=== PATIENT | male | born 1990 | race Caucasian/White ===

== ENCOUNTER 2025-04-09 00:14 | Inpatient (IN) | payer OTHER ==
[2025-04-09] VITALS (8 sets, daily range): BP systolic 128–138; BP diastolic 75–83
[~2025-04-09] VITALS: Ht 167.6 cm; Wt 96.9 kg
[2025-04-09] MEDS ORDERED: HYDROXYZINE HCL50 MG PO (00:29)
[2025-04-09] MEDS ORDERED: KETOROLAC TROMETHAMINE 30 MG/ML VIAL IV ONE (02:00)
[2025-04-09 02:09] LABS: BASOPHILS 0.4 % (0.2-1.2); EOSINOPHILS 0.5 % (0.8-7.0); LYMPHOCYTES 13.0 % (21.8-53.1); MCH 29.6 PG (25.7-32.2); MCHC 35.5 g/dL (32.3-36.5); MCV 83.4 fL (79.0-92.2); MONOCYTES 9.5 % (5.3-12.2); NEUTROPHILS 76.4 % (34.0-67.9); RBC 5.37 M/uL (4.63-6.08)
[2025-04-09] MEDS ORDERED: CYCLOBENZAPRINE HCL 10 MG TAB PO ONE (02:15)
[2025-04-09] MEDS ORDERED: HYDROmorphone HCL 1 MG/ML SYR IV ONE (02:15)
[2025-04-09 02:40] LABS: ALT (SGPT) 32.0 U/L (14-59); AST (SGOT) 138.0 U/L (15-37); GLOMERULAR FILTRATION RATE,EST 117.0 mL/min (>60); PROTEIN, TOTAL 7.8 g/dL (6.4-8.2); UREA NITROGEN 14.0 mg/dL (7-18)
[2025-04-09] MEDS ORDERED: HYDROmorphone HCL 1 MG/ML SYR IV PRN ×3 (03:45→15:45)
[2025-04-09] MEDS ORDERED: LACTATED RINGER'S 1,000 ML IV ONE ×2 (03:45→04:00)
[2025-04-09] MEDS ORDERED: ACETAMINOPHEN 325 MG TAB PO PRN ×2 (06:15→10:15)
[2025-04-09] MEDS ORDERED: LACTATED RINGER'S 1,000 ML IV SCH ×2 (06:15→10:15)
[2025-04-09 06:37] LABS: GLOMERULAR FILTRATION RATE,EST 125.0 mL/min (>60); UREA NITROGEN 10.0 mg/dL (7-18)
--- NOTE | 2025-04-09 07:50 | NUR ---
PT IN FROM ED VIA WHEELCHAIR. ALERT AND ORIENTED, ON RA C/O 10 PAIN. VSS TAKEN AND RECORDED. IV FLUID STARTED, PAIN MEDICATION GIVEN ORDERED. ADMISSION DONE.
--- NOTE | 2025-04-09 08:48 | NUR ---
PATIENT RESTING IN BED. SAFE BREAKFAST TRAY PROVIDED. TELE PLACED ON PATIENT. NO FURTHER NEEDS AT THIS TIME. GAURDS X2 AT BEDSIDE. CALL LIGHT AND PERSONAL BELONGINGS ARE WITHIN REACH.
--- NOTE | 2025-04-09 09:24 | NUR ---
PATIENT DOES NOT WEAR OXYGEN OR A CPAP.
--- NOTE | 2025-04-09 09:37 | NUR ---
PT LAYING IN BED, RESPIRATIONS EVEN AND UNLABORED. IV FLUID INFUSING WELL. C/O 02/13 PAIN AFTER USING THE BATHROOM. DILAUDID IV GIVEN ORDERED. DENIES FURTHER NEEDS. CALL LIGHT IN REACH.
--- NOTE | 2025-04-09 09:43 | NUR ---
PT STATED BEING GIVEN A MUSCLE RELAXANT AT ED THAT SEEMED TO HELP WITH HIS PAIN, ASKED IF IT IS AN OPTION FOR HIM. RELAYED TO DR. JUAN, WILL REVIEW. NO FURTHER ORDERS AT THIS TIME.
[2025-04-09] MEDS ORDERED: OXYCODONE HCL 5 MG TAB PO PRN (10:00)
[2025-04-09] MEDS ORDERED: CYCLOBENZAPRINE HCL 10 MG TAB PO PRN (10:00)
--- NOTE | 2025-04-09 10:29 | NUR ---
PT LAYING IN BED, RESPIRATIONS EVEN AND UNLABORED. IV FLUID INFUSING WELL. SCDS APPLIED ORDERED, EDUCATED THE PT ON REASONS AND BENEFITS OF WEARING THEM. PT VERBALIZED THAT HIS PAIN IS BETTER AFTER A DOSE OF DILAUDID. OFFERED ICE OR HEAT PACK, PT REFUSED FOR NOW IT IS PAINFUL FOR HIM TO MOVE. DENIES FURTHER NEEDS. CALL LIGHT IN REACH.
--- NOTE | 2025-04-09 10:33 | NUR ---
UR CLINICAL REVIEW: [facility] CRITERIA FOR RHABDOMYOLYSIS CK 9287, TRENDING CK, IV FLUIDS, NEEDED OBSERVATION PERIOD GREATER THAN 4 HOURS [facility] OBS 04/09/2025 @ 0610 ORDER MATCHES REG CLINICALS SENT TO [facility] VIA RIGHTFAX, NO AUTH REQUIRED. PLAN TO RETURN TO [facility] WHEN MEDICALLY READY. 04/10/2025
[2025-04-09] MEDS ORDERED: ABILIFY15 MG PO (10:52)
[2025-04-09] MEDS ORDERED: BUSPIRONE HCL10 MG PO (10:53)
[2025-04-09] MEDS ORDERED: DULOXETINE HCL30 MG PO (10:53)
[2025-04-09] MEDS ORDERED: TRAZODONE HCL100 MG PO (10:59)
--- NOTE | 2025-04-09 11:00 | NUR ---
MED REC COMPLETE
--- NOTE | 2025-04-09 11:30 | NUR ---
PT LAYING IN BED, RESPIRATIONS EVEN AND UNLABORED. NO C/O OF PAIN AT THE MOMENT. IV FLUID INFUSING WELL. DENIES NEEDS AT THIS TIME. CALL LIGHT IN REACH.
[2025-04-09] MEDS ORDERED: PHARMACY RENAL DOSE ADJUSTMENT 1 DOSE MISC PO SCH (12:00)
--- NOTE | 2025-04-09 12:29 | NUR ---
PT LAYING IN BED. RESPIRATIONS EVEN AND UNLABORED. C/O 12/14 PAIN, PRN MEDICATIONS GIVEN ORDERED. INTAKE AND OUTPUT RECORDED. DENIES FURTHER NEEDS
--- NOTE | 2025-04-09 13:18 | NUR ---
PT LAYING IN BED, RESPIRATIONS EVEN AND UNLABORED. IV FLUID INFUSING WELL. NO APPARENT NEEDS NOTED AT THIS TIME. CALL LIGHT WITHIN REACH.
--- NOTE | 2025-04-09 15:18 | NUR ---
PT LAYING IN BED, ASLEEP. RESPIRATIONS EVEN AND UNLABORED. IV FLUID INFUSING WELL. NO APPARENT NEEDS NOTED AT THIS TIME. CALL LIGHT IN REACH.
[2025-04-09] MEDS ORDERED: LACTATED RINGER'S 2,000 ML IV SCH (15:45)
--- NOTE | 2025-04-09 15:53 | NUR ---
PATIENT MEDICATED PER EMAR. HEAT BACK PROVIDED TO PATIENT LOWER BACK. BOLUS IV FLUIDS INFUSING PER ORDER. CPOX PLACED ON PATIENT DUE TO GETTING PAIN MEDICATIONS. PATIENT IS WITHOUT FURTHER NEEDS AT THIS TIME. CALL LIGHT AND PERSONAL BELONGINGS ARE WITHIN REACH.
--- NOTE | 2025-04-09 16:10 | NUR ---
PT LAYING IN BED, RESPIRATIONS EVEN AND UNLABORED. CURRENTLY RUNNING SECOND BAG OF 2L BOLUS. REPORTED HIS PAIN IS BETTER AFTER GETTING A DOSE OF PAIN MEDICATION. DENIES NEEDS AT THE MOMENT. CALL LIGHT IN REACH.
--- NOTE | 2025-04-09 17:42 | NUR ---
PT LAYING IN BED, C/O 02/13 PAIN, TYLENOL GIVEN ORDERED. IV INFUSING WELL. VITAL SIGNS TAKEN AND RECORDED. INTAKE AND OUTPUT RECORDED. DENIES FURTHER NEEDS. CALL LIGHT IN REACH.
--- NOTE | 2025-04-09 18:06 | NUR ---
PT LAYING IN BED. BOLUS DONE, CONTINUOUS IV INFUSION RESTARTED.
--- NOTE | 2025-04-09 18:35 | NUR ---
PT LAYING IN BED. C/O 02/13 PAIN PRN MEDICATION GIVEN. IV FLUID INFUSING WELL. DENIES FURTHER NEEDS. CALL LIGHT IN REACH.
--- NOTE | 2025-04-09 19:35 | NUR ---
REPORT RECEIVED FROM ALLAN ARITA. PT ASLEEP, GUARDS AT BEDSIDE. URINAL EMPTIED. CALL LIGHT WITHIN REACH.
[2025-04-09] MEDS ORDERED: SODIUM CHLORIDE 0.9% 1,000 ML IV SCH (20:45)
--- NOTE | 2025-04-09 20:46 | NUR ---
PAPER COATER OBTAINED VITALS AND I&O. PT REQUESTING PAIN MEDS. PT STATES NO OTHER NEEDS AND CALL LIGHT WITHIN REACH, GUARDS IN ROOM. RN NOTIFIED ABOUT PAIN MED.
--- NOTE | 2025-04-09 21:30 | NUR ---
PT RETING IN BED, GUARDS AT BEDSIDE. VSS. PT ORIENTED X 4, MILD ANXIETY. PT ASSISTED TO BR W/ 1 ASSIST FOR LTM. PT REPORTS 10/10 BACK PAIN AFTER AMBULATION, PRN IV DILAUDID ADMINISTERED PER EMAR. LSC. HRR. BTA. LBM YESTERDAY. VOIDS WNL, URINAL AT BEDSIDE. LAC SL WNL. RFA IV INFUSING NS BOLUS. SCD'S IN PLACE. CALL LIGHT WITHIN REACH.
--- NOTE | 2025-04-09 21:50 | NUR ---
MARTINEZ CATH PLACED PER MD VERBAL ORDER.
[2025-04-09] MEDS ORDERED: LIDOCAINE 2% VISCOUS 6 ML SYR TOP ONE (22:00)
--- NOTE | 2025-04-09 22:28 | NUR ---
PRN FLEXERIL ADMINISTERED PER C/O CONTINUED BACK PAIN, 11/13. PT RESTING IN BED. MARTINEZ CATH UO CLEAR YELLOW.
[2025-04-10] VITALS (12 sets, daily range): BP systolic 131–148; BP diastolic 65–79
--- NOTE | 2025-04-10 00:38 | NUR ---
4TH BOLUS OF NS STARTED. PRN IV DILAUDID ADMINISTERED FOR C/O 10/10 BACK PAIN. PT ASSISTED TO REPOSITION.
[2025-04-10 00:51] LABS: GLOMERULAR FILTRATION RATE,EST 119.0 mL/min (>60); UREA NITROGEN 7.0 mg/dL (7-18)
--- NOTE | 2025-04-10 01:25 | NUR ---
DR. VICENTE NOTIFIED OF INCREASING CK (13,[phone]). RECEIVED NEW ORDERS TO CHANGE IVF TO LR @ 500MLS/HR TO MAINTAIN UO >=300MLS/HR.
[2025-04-10] MEDS ORDERED: LACTATED RINGER'S 1,000 ML IV SCH (01:30)
--- NOTE | 2025-04-10 01:43 | NUR ---
LR INITIATED AT 500MLS/HR. AT BEDSIDE TO ASSESS PATIENT. UO PALE YELLOW, 1250cc OUT.
--- NOTE | 2025-04-10 02:57 | NUR ---
PT RESTING QUIETLY. URINE SAMPLE OBTAINED FROM MARTINEZ AND SENT TO LAB.
[2025-04-10 03:56] LABS: BLOOD/HGB, URINE LARGE (Negative); KETONE, URINE NEGATIVE (Negative); LEUK ESTERASE, URINE NEGATIVE (negative); NITRITE, URINE NEGATIVE (negative)
[2025-04-10 04:03] LABS: BACTERIA, URINE RARE /hpf (negative); CASTS, URINE NONE SEEN \\lpf; CRYSTALS, URINE NONE SEEN (0-1+); EPITHELIAL CELLS, URINE SQUAMOUS 1+ /lpf (0-1+); REFLEX CULTURE, URINE No (No)
[2025-04-10 04:10] LABS: AMPHETAMINES, URINE NEGATIVE (NEGATIVE); BARBITURATES, URINE NEGATIVE (NEGATIVE); BENZODIAZEPINE, URINE NEGATIVE (NEGATIVE); CANNABINOID, URINE NEGATIVE (NEGATIVE); COCAINE, URINE NEGATIVE (NEGATIVE); ECSTASY, URINE NEGATIVE (NEGATIVE); FENTANYL, URINE NEGATIVE (NEGATIVE); METHADONE, URINE NEGATIVE (NEGATIVE); OPIATES, URINE NEGATIVE (NEGATIVE); OXYCODONE, URINE POSITIVE (NEGATIVE); PHENCYCLIDINE, URINE NEGATIVE (NEGATIVE)
--- NOTE | 2025-04-10 04:35 | NUR ---
PT REQUESTED PRN IV DILAUDID FOR CONTINUED 10/10 BACK PAIN-ADMINISTERED. GUARDS REMAIN AT BEDSIDE.
--- NOTE | 2025-04-10 06:02 | NUR ---
PUMP ALARMING, NEW BAG IV FLUIDS INFUSING DIRECTED. IV SITE WNL, NO ADDITIONAL NEEDS OR CONCERNS VERBALIZED. GUARDS X2 REMAINS IN ROOM.
[2025-04-10 06:06] LABS: BASOPHILS 0.3 % (0.2-1.2); EOSINOPHILS 0.3 % (0.8-7.0); LYMPHOCYTES 11.1 % (21.8-53.1); MCH 29.3 PG (25.7-32.2); MCHC 35.3 g/dL (32.3-36.5); MCV 82.9 fL (79.0-92.2); MONOCYTES 8.6 % (5.3-12.2); NEUTROPHILS 79.5 % (34.0-67.9); RBC 5.43 M/uL (4.63-6.08)
[2025-04-10 06:35] LABS: ALT (SGPT) 53.0 U/L (14-59); AST (SGOT) 315.0 U/L (15-37); GLOMERULAR FILTRATION RATE,EST 124.0 mL/min (>60); PHOSPHORUS, INORGANIC 3.0 mg/dL (2.5-4.9); PROTEIN, TOTAL 6.6 g/dL (6.4-8.2); UREA NITROGEN 6.0 mg/dL (7-18)
--- NOTE | 2025-04-10 07:05 | NUR ---
REPORT RECIEVED FROM ALLAN MANUEL. PATIENT CALLED FOR HELP WITH HIS GOWN. IN ROOM TO DISCONNECT IV. IV FLUSHED WITH 10ML OF NS, DRESSING IS INTACT. IV REATTACHED. AND INFUSING PER ORDER. PATIENT REPOSITIONED TO COMFORT. PATIENT REPORTING DISCOMFORT, BUT DENIES A HEAT PACK DUE TO IT BEING "TOO UNCOMFORTABLE". PATIENT WITHOUT FURTHER NEEDS AT THIS TIME. CALL LIGHT AND PERSONAL BELONGINGS ARE WITHIN REACH.
--- NOTE | 2025-04-10 07:14 | NUR ---
REPORT RECEIVED FROM MAR LEMUS. PT LAYING IN BED, RESPIRATIONS EVEN AND UNLABORED. IV FLUID INFUSING WELL. MARTINEZ CATHETER DRAINING TO LIGHT YELLOW URINE. SCDS IN PLACE. NO NEEDS EXPRESSED AT THIS TIME. CALL LIGHT IN REACH.
--- NOTE | 2025-04-10 08:00 | NUR ---
PATIENT MEDICATED PER EMAR. PATIENT LAYING DOWN IN BED FLAT ON HIS BACK. PATIENT MRI SCREENING COMPLETED. PATIENT IS WITHOUT FURTHER NEEDS AT THIS TIME. CALL LIGHT AND PERSONAL BELONGINGS ARE WITHIN REACH.
--- NOTE | 2025-04-10 08:33 | NUR ---
PATIENT REPORTING A LEVEL OF "15" PAIN AT THIS TIME. PATIENT MEDICATED PER EMAR. PATIENT REPORTS PAIN IS "GOING TO MY STOMACH". ABD PALPATED AND WAS NOTED TO BE SOFT AND NON DISTENDED. PATIENT DENIES INCREASED WITH PALPATIONS. DR VICENTE NOTIFIED. PATIENT DENIES WANTING TO EAT AT THIS TIME. CALL LIGHT AND PERSONAL BELONGINGS ARE WITHIN REACH.
[2025-04-10] MEDS ORDERED: MAGNESIUM SULFATE 2 GM/50 ML BAG IV SCH (09:00)
--- NOTE | 2025-04-10 09:05 | NUR ---
Livia Carr. Correctional officers in the room. Pt denies needs.
--- NOTE | 2025-04-10 09:36 | NUR ---
IV MAG COMPLETED. IV FLUIDS INFUSING PER EMAR. PATIENT RESTING IN BED WITH HIS EYES CLOSED. EVEN AND UNLABORED RESPIRATIONS NOTED. GAURDS X2 AT BEDSIDE AND IS WITHOUT ANY NEEDS. CALL LIGHT AND PERSONAL BELONGINGS ARE WITHIN REACH.
--- NOTE | 2025-04-10 10:14 | NUR ---
PATIENT MEDICATED PER EMAR. PATIENT RESTING IN BED WITH HIS EYES CLOSED. EVEN AND UNALBORED RESPIRATIONS NOTED. CALL LIGHT AND PERSONAL BELONGINGS ARE WITHIN REACH. GAURDS X2 AT BEDSIDE AND ARE WITHOUT ANY NEEDS.
--- NOTE | 2025-04-10 11:15 | NUR ---
PATIENT MEDICATED PER EMAR. PATIENT RESTING IN BED AND STATES HIS PAIN IS "INCREASING AGAIN". PATIENT DENIES A HEAT PACK. PATIENT WITH GAURDS X2 AT BEDSIDE. CALL LIGHT AND PERSONAL BELONGINGS ARE WITHIN REACH.
--- NOTE | 2025-04-10 11:58 | NUR ---
LUNCH TRAY DELIVERED PATIENT STATES HE DOESN'T FEEL UP TO EATING. TRAY LEFT NEXT TO PATIENT IF HE DECIDES TO EAT LATER. PATIENT IS WITHOUT ANY NEEDS AT THIS TIME. CALL LIGHT AND PERSONAL BELONGINGS ARE WITHIN REACH. MISHA Walls AT BEDSIDE.
--- NOTE | 2025-04-10 12:38 | NUR ---
PT RESTING IN BED, RESPIRATIONS EVEN AND UNLABORED. IV FLUID INFUSING WELL. HUNG NEW IV FLUID BAG. DENIES NEEDS AT THE MOMENT. CALL LIGHT IN REACH.
--- NOTE | 2025-04-10 12:57 | NUR ---
PATIENT RESTING IN BED WITH GAURDS X2 AT HIS SIDE. PATIENT REPORTS 7/10 PAIN, BUT WOULD LIKE TO WAIT UNTIL HE RETURNS FROM MRI TO RECIEVE PAIN MEDICATION AFTER MOVING AND AGGRAVATING PAIN. PATIENT IV SALINE LOCKED FOR MRI. SCD'S REMOVED. CPOX REMOVED. PATIENT WITHOUT FURTHER NEEDS AT THIS TIME. CALL LIGHT AND PERSONAL BELONGINGS ARE WITHIN REACH.
--- NOTE | 2025-04-10 13:08 | NUR ---
PATIENT TAKEN OFF THE FLOOR TO MRI AT THIS TIME.
--- NOTE | 2025-04-10 13:31 | NUR ---
PATIENT REMAINS OFF THE FLOOR IN MRI. FRESH LINEN PROVIDED TO PATIENT'S BED. GARBAGE EMPTIED, ROOM CLEANED UP. FRESH ICE WATER PROVIDED.
--- NOTE | 2025-04-10 14:02 | NUR ---
PATIENT BACK FROM MRI. PATIENT MEDICATED PER EMAR. PATIENT LAYING IN BED ON HIS BACK. INTAKE AND OUTPUT DOCUMENTED. PATIENT IS WITHOUT FURTHER NEEDS AT THIS TIME. CALL LIGHT AND PERSONAL BELONGINGS ARE WITHIN REACH. MISHA X2 AT BEDSIDE.
[2025-04-10] MEDS ORDERED: LIDOCAINE HCL 4% 1 EACH PATCH TD SCH (15:08)
--- NOTE | 2025-04-10 15:30 | NUR ---
IN ROOM PLACING LIDOCAINE PATCH PER DR VICENTE ORDERS. HEAT PACK ALSO PLACED. PATIENT REPORTING SEVERE PAIN TO THE POINT OF TEARS. PATIENT STATES HE CAN'T HANDLE THE HEAT PACK. PATIENT ALSO REPORTING THAT MOVING CAUSES INCREASE PAIN. DR VICENTE NOTIFIED OF PATIENT SYMPTOMS. MD ENTERING NEW ORDERS AT THIS TIME.
[2025-04-10] MEDS ORDERED: HYDROmorphone HCL 1 MG/ML SYR IV ONE (15:45)
--- NOTE | 2025-04-10 15:46 | NUR ---
PATIENT MEDICATED PER EMAR. INTAKE AND OUTPUT DOCUMENTED. PATIENT STILL REPORTING INCREASE PAIN. PATIENT EDUCATED TO GIVE PAIN MEDICATION TIME TO TAKE EFFECT. PATIENT IS ON 2L NC AND IS AT 95% WITH CPOX AT BEDSIDE. CALL LIGHT AND PERSONAL BELONGINGS ARE WITHIN REACH. GAURDS X2 AT BEDSIDE.
--- NOTE | 2025-04-10 17:09 | NUR ---
PATIENT RESTING IN BED WITH HIS EYES CLOSED. EVEN AND UNLABORED REPIRATIONS NOTED. PATIENT IS 96% ON 2L NC WITH CPOX AT BEDSIDE. DINNER TRAY SET NEXT TO PATIENT. CALL LIGHT AND PERSONAL BELONGINGS ARE WITHIN REACH.
--- NOTE | 2025-04-10 18:09 | NUR ---
PATIENT MEDICATED PER EMAR. PATIENT REPORTS INCREASE PAIN WITH MOVEMENT BUT WANTED TO MOVE "BECAUSE I'M STARTING TO CRAMP UP STAYING IN THE SAME POSTITION". PATIENT VITAL SIGNS TAKEN AND ARE STABLE. NEW BAG OF IV FLUIDS INFUSING. INTAKE AND OUTPUT DOCUMENTED. PATIENT IS WITHOUT FURTHER NEEDS AT THIS TIME. CALL LIGHT AND PERSONAL BELONGIGNS ARE WITHIN REACH. MISHA X2 AT BEDSIDE.
--- NOTE | 2025-04-10 19:10 | NUR ---
DR VICENTE NOTIFIED OF PATIENT'S NEW CK LEVEL. MD WITH NO NEW ORDERS AND STATES TO CONTINUE TO INFUSE FLUIDS PER ORDER, GIVE PAIN MEDICATIONS PATIENT NEEDS THEM, AND TRACK INTAKE AND OUTPUT.
--- NOTE | 2025-04-10 19:27 | NUR ---
RECEIVED REPORT FROM ALLAN BENEDICT. PT RESTING IN BED, GUARDS AT BEDSIDE. PT REPORTS CONTINUED PAIN TO BACK BUT DECLINES PAIN MED AT THIS TIME. CALL LIGHT WITHIN REACH.
[2025-04-10] MEDS ORDERED: LIDOCAINE PATCH REMOVAL 1 EA TD SCH (21:00)
--- NOTE | 2025-04-10 21:00 | NUR ---
POC REVIEWED W/ MD. NEXT CK LAB AT MIDNIGHT-NO NEED TO CALL W/ YESENIA UNLESS ITS A LARGE JUMP.
--- NOTE | 2025-04-10 21:07 | NUR ---
PT RESTING IN BED, GUARDS AT BEDSIDE. VSS. REPORTS LOWER BACK PAIN 10/10 AFTER REPOSITIONING IN BED. PT MEDICATED W/ PRN OXYCODONE. LSC DIM TO BASES, PT ENC TO DB & C IN BED-PT RESISTANT. HRR. BTA. LBM 04/09. MARTINEZ CATH CARE DONE, UO LIGHT TEA COLORED W/ MUCOUS. LAC SL WNL. RFA IV INFUSING LR @ 500MLS/HR. SCD'S REAPPLIED TO BLE. FRESH ICE WATER PROVIDED. PT HAS SHACKLES TO ALL 4 EXTREMITIES. CALL LIGHT WITHIN REACH.
--- NOTE | 2025-04-10 21:28 | NUR ---
PT MEDICATED W/ PRN IV DIALUDID FOR C/O 02/13 LOWER BACK PAIN. PT REPORTS HAVING JUST REPOSITIONED A BIT W/ GUARDS HELP.
[2025-04-11] VITALS (10 sets, daily range): BP systolic 127–156; BP diastolic 79–87
--- NOTE | 2025-04-11 00:20 | NUR ---
LAB IN TO DRAW BLOOD. NEW BAG LR HUNG, INFUSING AT 500MLS/HR. PT MEDICATED W/ PRN IV DILAUDID FOR C/O 10/10 LOWER BACK PAIN. GUARDS REMAIN AT BEDSIDE.
--- NOTE | 2025-04-11 01:20 | NUR ---
PT SLEEPING SOUNDLY. APPEARS COMFORTABLE. GUARDS AT BEDSIDE.
--- NOTE | 2025-04-11 03:41 | NUR ---
PT MEDICATED W/ PRN IV DILAUDID. PAIN 10/10 TO LOWER BACK. MARTINEZ CATH EMPTIED-UO TEA COLORED. GUARDS AT BEDSIDE.
--- NOTE | 2025-04-11 04:39 | NUR ---
NEW BAG LR HUNG. PT ASLEEP-APPEARS COMOFRTABLE AT THIS TIME. GUARDS AT BEDSIDE.
[2025-04-11 05:22] LABS: BASOPHILS 0.1 % (0.2-1.2); EOSINOPHILS 0.1 % (0.8-7.0); LYMPHOCYTES 11.5 % (21.8-53.1); MCH 29.8 PG (25.7-32.2); MCHC 35.6 g/dL (32.3-36.5); MCV 83.7 fL (79.0-92.2); MONOCYTES 10.5 % (5.3-12.2); NEUTROPHILS 77.5 % (34.0-67.9); RBC 5.20 M/uL (4.63-6.08)
[2025-04-11 05:43] LABS: ALT (SGPT) 109.0 U/L (14-59); AST (SGOT) 534.0 U/L (15-37); GLOMERULAR FILTRATION RATE,EST 125.0 mL/min (>60); PROTEIN, TOTAL 6.4 g/dL (6.4-8.2); UREA NITROGEN 4.0 mg/dL (7-18)
--- NOTE | 2025-04-11 06:40 | NUR ---
PT REQUESTED PRN IV DILAUDID-ADMINISTERED PER EMAR. REPORTS PAIN 10/10 TO LOWER BACK, SHARP.
--- NOTE | 2025-04-11 07:12 | NUR ---
REPORT RECIEVED FROM ALLAN MANUEL. PATIENT RESTING IN BED AND STATES HIS PAIN IS "OKAY, I JUST GOT SOME PAIN MEDICATION". PATIENT WAS 87% ON ROOM AIR. NASAL CANULA PLACED BACK ON PATIENT AT 2LPM. OXYGEN LEVEL BACK UP TO 97%. PATIENT IS WITHOUT FURTHER NEEDS AT THIS TIME. CALL LIGHT AND PERSONAL BELONGINGS ARE WITHIN REACH. MISHA X2 AT BEDSIDE.
--- NOTE | 2025-04-11 08:34 | NUR ---
PATIENT RESTING IN BED WATCHING TV WITH PA Semi X2 AT BEDSIDE. PATIENT REPORTS PAIN IS 7/10. PATIENT MEDICATED PER EMAR. PATIENT DENIES HAVING MUCH OF AN APPETITE. PATIENT WAS OFFERED A CHOCOLATE PROTEIN SHAKE AND ACCEPTED. NEW BAG OF IV FLUIDS INFUSING PER ORDER. PATIENT IS WITHOUT FURTHER NEEDS AT THIS TIME. CALL LIGHT AND PERSONAL BELONGINGS ARE WITHIN REACH.
--- NOTE | 2025-04-11 09:45 | NUR ---
PATIENT CALLED REQUESTING SHOWER. THIS RN IN ROOM ASSISTING PATIENT. PATIENT IV'S WRAPPED FOR SHOWER. FRESH BEDDING PROVIDED. PATIENT TOLERATED UP TO SHOWER WELL. MISHA AT SIDE X2. PATIENT INSTRUCTED TO CALL WHEN HE IS FINISHED.
--- NOTE | 2025-04-11 10:27 | NUR ---
PATIENT BACK IN BED AFTER SHOWER. IV FLUSHED WITH 10ML OF NS, DRESSING IS INTACT. PATIENT HAD INCREASE PAIN WITH MOVEMENT, BUT IS AN IMPROVEMENT FROM YESTERDAY. PATIENT IS WITHOUT FURTHER NEEDS AT THIS TIME. INTAKE AND OUTPUT DOCUMENTED. CALL LIGHT AND PERSONAL BELONGIGNS ARE WITHIN REACH. PATIENT IS 88% ON ROOM AIR. PATIENT PLACED ON 2LPM NC AND IS AT 95% WITH CPOX AT BEDSIDE. GAURDS X2 AT BEDSIDE.
--- NOTE | 2025-04-11 11:50 | NUR ---
PATIENT RESTING IN BED WATCHING TV AND STATES HE IS "DOING OKAY, I MOVED A LITTLE AND IT HURT, BUT IT'S GOING AWAY". PATIENT STATES HE WILL TRY AND EAT SOME LUNCH. PROTEIN SHAKE PROVIDED. PATIENT IS WITHOUT FURTHER NEEDS AT THIS TIME. CALL LIGHT AND PERSONAL BELONGINGS ARE WITHIN REACH. MISHA Walls AT BEDSIDE.
--- NOTE | 2025-04-11 12:07 | NUR ---
DR VICENTE AT BEDSIDE AND WITH VERBAL ORDER TO REDUCE PATIENT'S IV FLUIDS TO 400ML/HR FROM 500ML/HR.
--- NOTE | 2025-04-11 13:14 | NUR ---
PATIENT FELT WARM TO TOUCH, TEMPERATURE TAKEN AND WAS 99.3. RT REJI IN ROOM ASSISTING PATIENT WITH IS. PATIENT TEMPERATURE UP TO 100.2. SLIGHT CRACKLES NOTED TO PATIENT'S BILATERAL BASES OF LUNGS. DR VICENTE NOTIFIED AND STATES HE WILL ADD ORDER. MD WITHOUT FURTHER ORDERS AT THIS TIME. CALL ENDED. PATIENT RESTING IN BED, UPDATED ON POC. INTAKE AND OUTPUT DOCUMENTED. PATIENT IS WITHOUT FURTHER NEEDS AT THIS TIME. CALL LIGHT AND PERSONAL BELONGINGS ARE WITHIN REACH. MISHA Walls AT BEDSIDE.
--- NOTE | 2025-04-11 13:31 | NUR ---
DR VICENTE AT BEDSIDE EVALUATING PATIENT. VERBAL ORDER FROM MD TO DECRESE PATIENT'S IV FLUIDS TO 300ML/HR FROM 400ML/HR.
[2025-04-11 13:39] LABS: ALT (SGPT) 135.0 U/L (14-59); AST (SGOT) 663.0 U/L (15-37); GLOMERULAR FILTRATION RATE,EST 125.0 mL/min (>60); PROTEIN, TOTAL 6.6 g/dL (6.4-8.2); UREA NITROGEN 7.0 mg/dL (7-18)
--- NOTE | 2025-04-11 14:15 | NUR ---
PATIENT MEDICATED PER EMAR. NEW BAG OF IV FLUIDS INFUSING PER ORDER. PATIENT VITAL SIGNS TAKEN AND ARE STABLE. PATIENT IS WITHOUT FURTHER NEEDS AT THIS TIME. CALL LIGHT AND PERSONAL BELONGIGNS ARE WITHIN REACH. MISHA X2 AT BEDSIDE.
--- NOTE | 2025-04-11 15:27 | NUR ---
PATIENT RESTING IN BED WATCHING TV WITH [employer] X2 AT BEDSIDE. PATIENT MEDICATED PER EMAR. IV ABX INFUSING PER EMAR. INTAKE AND OUTPUT DOCUMENTED. PATIENT IS WITHOUT FURTHER NEEDS AT THIS TIME. CALL LIGHT AND PERSONAL BELONGINGS ARE WITHIN REACH.
[2025-04-11] MEDS ORDERED: POLYETHYLENE GLYCOL 3350 1 PACKET PO SCH (15:33)
--- NOTE | 2025-04-11 15:56 | NUR ---
ABX COMPLETE AT THIS TIME. IVF INFUSING. CALL LIGHT IN REACH.
[2025-04-11] MEDS ORDERED: GABAPENTIN 300 MG CAP PO SCH (17:17)
[2025-04-11] MEDS ORDERED: KETOROLAC TROMETHAMINE 15 MG/ML VIAL IV PRN (17:30)
--- NOTE | 2025-04-11 17:52 | NUR ---
PATIENT MEDICATED PER EMAR. PATIENT VITALS SIGNS TAKEN AND ARE STABLE. PATIENT RESTING IN BED WATCHING TV WITH [employer] X2 AT BEDSIDE. PATIENT DENIES WANTING TO EAT DINNER. PROTEIN SHAKE PROVIDED. PATIENT DRANK SHAKE AND TOLERATED WELL. PATIENT IS WITHOUT FURTHER NEEDS AT THIS TIME. CALL LIGHT AND PERSONAL BELONGINGS ARE WITHIN REACH. PATIENT IS 99% ON 2LPM NC. CPOX AT BEDSIDE.
--- NOTE | 2025-04-11 19:39 | NUR ---
REPORT RECEIVED FROM ALLAN BENEDICT. PATIENT RESTING IN BED, REPORTS 10/10 PAIN, PRN PAIN MEDICATION GIVEN PER ORDER. RESPIRATIONS EVEN AND UNLABORED, CPOX AT BEDSIDE, VS OBTAINED AND RECORDED. HE DENIES OTHER NEEDS, CALL LIGHT IN REACH.
--- NOTE | 2025-04-11 20:59 | NUR ---
ASSESSMENT COMPLETE, SCD IN PLACE. PATIENT IN RESTRAINTS, CMS INTACT. GUARDS X2 AT BEDSIDE. CPOX AT BEDSIDE. INTAKE AND OUTPUT DOCUMENTED. PATIENT REPORTS 7/10 PAIN. NO FURTHER NEEDS, CALL LIGHT IN REACH
[2025-04-11] MEDS ORDERED: SENNOSIDES/DOCUSATE 1 EA TAB PO SCH (21:00)
--- NOTE | 2025-04-11 21:29 | NUR ---
DR. VICENTE IN ROOM.
--- NOTE | 2025-04-11 21:52 | NUR ---
PATIENT RESTING WITH EYES CLOSED, RESPIRATIONS EVEN AND UNLABORED. NEW IVF BAG HUNG PER ORDER, INFUSING WITHOUT DIFFICULTY. NO OTHER NEEDS, GUARDS X2 IN ROOM. CALL LIGHT IN REACH
[2025-04-11 22:40] LABS: ALT (SGPT) 149.0 U/L (14-59); AST (SGOT) 671.0 U/L (15-37); GLOMERULAR FILTRATION RATE,EST 120.0 mL/min (>60); PROTEIN, TOTAL 6.3 g/dL (6.4-8.2); UREA NITROGEN 1.0 mg/dL (7-18)
--- NOTE | 2025-04-11 23:16 | NUR ---
SCHEDULED IV MEDICATION STARTED PER ORDER, PRN PAIN MEDICATION GIVEN FOR 10/10 PAIN. TEMPERATURE REASSESSED, 100.7. MARTINEZ CATH EMPTIED. ENCOURAGED TO DO IS. PATIENT REPORTS HE FEELS LIKE HIS "LUNGS ARE TIGHT" BUT DENIES SOB. HE DENIES FURTHER NEEDS, CALL LIGHT IN REACH
[2025-04-12] VITALS (12 sets, daily range): BP systolic 122–143; BP diastolic 71–83
--- NOTE | 2025-04-12 00:29 | NUR ---
ROUNDED ON PATIENT, PATIENT RESTING WITH EYES CLOSED, RESPIRATIONS EVEN AND UNLABORED. NO NEEDS IDENTIFIED, GUARDS X2 AT BEDSIDE. CALL LIGHT IN REACH
--- NOTE | 2025-04-12 01:40 | NUR ---
PATIENT RESTING WITH EYES CLOSED, RESPIRATIONS EVEN AND UNLABORED. IVF BAG HUNG, CONTINUING TO INFUSE WITHOUT DIFFICULTY. INTAKE AND OUTPUT DOCUMENTED. GUARDS X2 AT BEDSIDE. PATIENT DENIES FURTHER NEEDS, CALL LIGHT IN REACH
--- NOTE | 2025-04-12 02:47 | NUR ---
CALL LIGHT ANSWERED, PRN PAIN MEDICATION GIVEN TO PATIENT FOR 10/10 PAIN. PATIENT DENIES ANY OTHER NEEDS, CALL LIGHT IN REACH
--- NOTE | 2025-04-12 04:16 | NUR ---
ROUNDED ON PATIENT, PATIENT REPORTS 6/10 PAIN. CPOX AT BEDSIDE, GUARDS X2 AT BEDSIDE, PRN PAIN MEDICATION GIVEN TO PATIENT PER REQUEST. HE DENIES ANY OTHER NEEDS, CALL LIGHT IN REACH
--- NOTE | 2025-04-12 04:52 | NUR ---
NEW IVF BAG HUNG PER ORDER. INFUSING WITHOUT DIFFICULTY. RESPIRATIONS EVEN AND UNLABORED. no further needs, call light in reach
[2025-04-12 05:14] LABS: BASOPHILS 0.2 % (0.2-1.2); EOSINOPHILS 0.1 % (0.8-7.0); LYMPHOCYTES 11.1 % (21.8-53.1); MCH 29.8 PG (25.7-32.2); MCHC 35.8 g/dL (32.3-36.5); MCV 83.3 fL (79.0-92.2); MONOCYTES 11.7 % (5.3-12.2); NEUTROPHILS 76.7 % (34.0-67.9); RBC 4.90 M/uL (4.63-6.08)
[2025-04-12 05:42] LABS: ALT (SGPT) 151.0 U/L (14-59); AST (SGOT) 643.0 U/L (15-37); GLOMERULAR FILTRATION RATE,EST 127.0 mL/min (>60); PROTEIN, TOTAL 6.2 g/dL (6.4-8.2); UREA NITROGEN 6.0 mg/dL (7-18)
--- NOTE | 2025-04-12 06:30 | NUR ---
VS OBTAINED AND RECORDED, SHEDULED MEDICATION AND PRN MEDICATION FOR PAIN GIVEN TO PATIENT FOR 10/10 PAIN. LUNG SOUNDS CLEAR, PATIENT COUGHING OCCASIONALLY AND USING IS AND ACAPELLA FOR DEEP BREATHING. IVF CONTINUING TO INFUSE WITHOUT DIFFICULTY. HE ALSO REQUESTS MEDICATION FOR MUSCLE SPASMS. OTHERWISE DENIES NEEDS, CALL LIGHT IN REACH
--- NOTE | 2025-04-12 06:57 | NUR ---
PRN MEDICATION GIVEN FOR MUSCLE SPASMS. PATIENT RATES PAIN 7/10. HE DENIES OTHER NEEDS, RESPIRATIONS EVEN AND UNLABORED. O2 AT 1L NC. GUARDS X2 IN ROOM, RESTRAINTS IN PLACE, CMS INTACT. CALL LIGHT IN REACH
--- NOTE | 2025-04-12 07:28 | NUR ---
VERBAL REPORT RECEIVED FROM ALLAN MONTELONGO. PT RESTS IN BED, AWAKE AND ALERT, GUARDS X2 AT BEDSIDE. PT WATCHES TV, DENIES NEEDS AT THIS TIME.
--- NOTE | 2025-04-12 08:06 | NUR ---
PATIENT REFUSED HIS BREAKFAST BUT DRANK FULL ENSURE PER SHOT TUBE MACHINE TENDER. NO FURTHER NEEDS AT THIS TIME. GUARDS X2 AT BEDSIDE CALL LIGHT IN REACH.
--- NOTE | 2025-04-12 09:51 | NUR ---
DR VICENTE AT [facility]. VS AND I&O'S OBTAINED AND DOCUMENTED. ASSESSMENT COMPLETED AND DOCUMENTED. IV ABX COMPLETED AND PATIENT IS SALINE LOCKED LFA. PATIENT LAYING IN BED AWAKE AND ALERT. GUARDS X2 AT BEDSIDE WITH PATENT IN [employer] RESTRAINTS. CMS INTACT. PRN PAIN MEDS GIVEN WITHOUT DIFFICULTY PER EMAR ORDERS. DR VICENTE ORDERS DECREASE LR TO 250 ML/HR. NO OTHER NEEDS AT THIS TIME. CALL LIGHT IN REACH.
--- NOTE | 2025-04-12 10:04 | NUR ---
PATIENT OUTPUT FOR 1000 WAS 250ML, DR VICENTE VERBAL ORDER OF INCREASE IN LR TO 400 ML/HR. PATIENT OUTPUT IS CLEAR YELLOW. CALL LIGHT IN REACH.
--- NOTE | 2025-04-12 11:19 | NUR ---
ROUNDED ON PATIENT, LAYING SUPINE IN BED, AWAKE AND ALERT. PATIENT ONLY HAD 250ML IN MARTINEZ, INSTRUCTED PATIENT TO MOVE FROM SIDE TO SIDE IN BED FOR MUSCLE MOVEMENT WELL HELP TO INCREASE URINE DRAINAGE. TANIA DID DRAIN MORE URINE AT THIS TIME. PATIENT IS PAINFUL IN BACK WITH MOVEMENT BUT EDUCATED ON THE IMPORTANCE OF MOVEMENT WHILE IN BED. PATIENT VERBALIZED UNDERSTANDING. GUARDS X2 AT BEDSIDE, PAITENT REMAINS IN EOCI RESTRAINTS, CMS INTACT. CPOX AT BEDSIDE 98%SAT 1LNC. PATIENT DENIES FURTHER NEEDS. CALL LIGHT IN REACH.
--- NOTE | 2025-04-12 11:53 | NUR ---
PATIENT LAYING IN BED AWAKE AND ALERT WITH LUNCH TRAY SET UP. NEW IV FLUID INFUSING WITHOUT DIFFICULTY. MARTINEZ EMPTIED PER HOURLY OUTPUT. URINE IS CLEAR, YELLOW. PATIENT REMAINS IN EOCI RESTRAINTS, GUARDS X2 AT BEDSIDE, CMS INTACT. NO C/O PAIN AT THIS TIME. CALL LIGHT IN REACH.
--- NOTE | 2025-04-12 12:57 | NUR ---
PRN PAIN MEDICATION GIVEN PER EMAR AND PATIENT REQUEST FOR 10/10 PAIN. PATIENT IS AWAKE AND ALERT LAYING IN BED, LAB IN ROOM, WORKING SUPERVISOR OBTAINING VITALS. PATIENT WITH EOCI RESTRAINTS ON CMS INTACT. GUARDS X2 AT BEDSIDE. PATIENT DENIES FURTHER NEEDS AT THIS TIME. CALL LIGHT IN REACH.
--- NOTE | 2025-04-12 13:01 | NUR ---
PT'S RESPIRATIONS WERE TAKEN BLOOD WAS BEING DRAWN BY A CLERK MANAGER, IT WAS FASTER THAN PT'S NORMAL. PT HAS CALL LIGHT WITHIN REACH, TWO SECURITY OFFICERS IN THE ROOM, AND ALL SAFETY PROCAUTIONS ARE BEING FOLLOWED AT THIS TIME. TV ON. GOT PT FRESH ICE WATER AND EDUCATED PT ON THE NEED FOR HIM TO DRINK FLUIDS.
--- NOTE | 2025-04-12 13:04 | NUR ---
EMPTIED ROOM TRASH AND CLEANED UP THE ROOM. GOT PT FRESH ICE WATER AND CRANBERRY JUICE. PT HAS CALL LIGHT NEXT TO HIS HAND ON THE BED, AND TWO SECURITY OFFICERS ARE IN THE ROOM, PER SECURITY MEASURES. PT REPORTS NEEDING NOTHING MORE AT THIS TIME.
[2025-04-12 13:37] LABS: ALT (SGPT) 156.0 U/L (14-59); AST (SGOT) 624.0 U/L (15-37); GLOMERULAR FILTRATION RATE,EST 120.0 mL/min (>60); PROTEIN, TOTAL 6.4 g/dL (6.4-8.2); UREA NITROGEN 9.0 mg/dL (7-18)
--- NOTE | 2025-04-12 15:03 | NUR ---
PRN PAIN MEDICATION GIVEN PER EMAR AND PATIENT REQUEST OF 10/10 PAIN. PATIENT IS AWAKE AND ALERT LAYING IN BED, E[employer] RESTRAINTS ON, CMS INTACT, GUARDSX2 AT BESIDE. FOCUSED ASSESSMENT COMPLETED AND DOCUMENTED. PATIENT DENIES FURTHER NEEDS. CALL LIGHT IN REACH.
--- NOTE | 2025-04-12 16:11 | NUR ---
ANSWERED PATIENT CALL LIGHT FOR ASSISTANCE IN READJUSTING IN BED. THIS RN ALONG [facility] HELPED TO REPOSITION PATIENT IN BED. PATIENT THEN GIVEN PRN PAIN MEDICATION PER EMAR ORDER AND PATIENT REPORTING 10/10 PAIN FROM "EXCERCISING IM BED". EOCI RESTRAINTS IN PLACE, CMS INTACT, GUARDS X2 AT BEDSIDE. PATIENT DENIES FURTHER NEEDS AT THIS TIME. CALL LIGHT IN REACH.
--- NOTE | 2025-04-12 17:14 | NUR ---
PATIENT REFUSED DINNER AND ASKED FOR AN ENSURE INSTEAD. PATIENT DENIES ANY STOMACH PAIN. MARTINEZ EMPTIED AND DOCUMENTED. URINE REMAINS CLEAR. IVF INFSUING WITHOUT DIFFICULTY. E[employer]I RESTRAINTS IN PLACE, CMS INTACT, GUARDS X2 AT BEDSIDE. PATIENT DENIES NEEDS AT THIS TIME. CALL LIGHT IN REACH.
--- NOTE | 2025-04-12 18:30 | NUR ---
DR VICENTE NOTIFIED OF PATIENT TEMP OF 101.8 AND PULSE OF 105. UPON AUSCULTATION OF LUNGS CLEAR ON TOP AND SLIGHT WHEEZING IN THE BASES DIFFICULT TO ASSESS LUNG BASES PATIENT COULD NOT TOLORATE MOVEMENT DUE TO HIGH PAIN LEVEL. DR ADVISED TO GIVE KETORALC AT A MORE CONSISTANT TIME AND GIVE TYLENOL WELL. NO NEW ORDERS AT THIS TIME.
--- NOTE | 2025-04-12 18:39 | NUR ---
PRN PAIN MEDICATION GIVEN FOR PER DR ORDER AND PATIENT C/O PAIN OF "12/10". PATIENT ALSO PRESENTS WITH TEMP OF 101.8. NO OTHER NEEDS IDENTIFIED AT THIS TIME. CALL LIGHT AND GUARDSX2 AT BEDSIDE.
--- NOTE | 2025-04-12 19:35 | NUR ---
REPORT RECEIVED FROM CRUZ, RN. PATIENT RESTING IN BED, WATCHING TV. GUARDS X2 AT BEDSIDE, RESPIRATIONS EVEN AND UNLABORED. VS OBTAINED AND RECORDED. PATIENT REPORTS [address] VICENTE IN ROOM TO TALK TO PATIENT. PATIENT REPORTS HE WOULD LIKE TO DO SOME PHYSCIAL THERAPY EXERCISES IN BED TONIGHT, PATIENT EDUCATED ON PAIN COVERAGE SCHEDULE AND BENEFITS OF MOVEMENT. MD UPDATED REGARDING VS AND APPETITE THROUGHOUT THE DAY. NO FURTHER NEEDS, CALL LIGHT IN REACH
--- NOTE | 2025-04-12 20:24 | NUR ---
ASSESSMENT COMPLETE. PATIENT IN BED AND WATCHING TV, PRN PAIN MEDICATION GIVEN TO PATIENT FOR 8/10 PAIN. PATIENT REPORTS THAT HE HAD JUST FINISHED DOING PT EXERCISES THAT WERE GIVEN TO HIM AND USING ACAPELLA AND IS. RESTRAINTS IN PLACE, CMS INTACT, 2+ PULSES. LUNGS CLEAR, RESPIRATIONS EVEN AND UNLABORED. HE DENIES FURTHER NEEDS, CALL LIGHT IN REACH.
[2025-04-12 21:43] LABS: ALT (SGPT) 155.0 U/L (14-59); AST (SGOT) 566.0 U/L (15-37); GLOMERULAR FILTRATION RATE,EST 121.0 mL/min (>60); PROTEIN, TOTAL 6.2 g/dL (6.4-8.2); UREA NITROGEN 9.0 mg/dL (7-18)
--- NOTE | 2025-04-12 22:25 | NUR ---
ROUNDED ON PATIENT, PATIENT REPORTS HE IS COMFORTABLE AT THIS TIME. GUARDS X2 AT BEDSIDE. NEW BAG IVF HUNG PER ORDER, INFUSING WITHOUT DIFFICULTY. FRESH WATER GIVEN. NO FURTHER NEEDS, CALL LIGHT IN REACH
--- NOTE | 2025-04-12 23:11 | NUR ---
SCHEDULED IV MEDICATION STARTED PER ORDER. IVF CONTINUING TO INFUSE WITHOUT DIFFICULTY. PATIENT TURNED ON LEFT SIDE SO RN COULD VISUALIZE THE BACK. PATIENT HAS DIFFICULTY MOVING D/T PAIN. RIGHT SIDE OF BACK IS TENDER TO TOUCH, HE STATES THAT IT "FEELS SWOLLEN". NO EDEMA NOTED TO BACK. PATIENT ROLLED BACK INTO SEMI-FOWLERS POSITION, UNABLE TO TOLERATE REMAINING ON SIDE. CALL LIGHT IN REACH, GUARDS X2 AT BEDSIDE.
--- NOTE | 2025-04-12 23:30 | NUR ---
ROUNDED ON PATIENT, PATIENT IS REPORTING 10/10 PAIN, PRN PAIN MEDICATION GIVEN PER ORDER. IVF AND IV MEDICATION CONTINUING TO INFUSE WITHOUT DIFFICULTY. GUARDS X2 AT BEDSIDE, MARTINEZ CATH EMPTIED, NO FURTHER NEEDS, CALL LIGHT IN REACH
--- NOTE | 2025-04-12 23:37 | NUR ---
TC TO DR. VICENTE TO NOTIFY OF DECREASED URINE OUTPUT FROM [facility], ORDERS RECEIVED TO INCREASE IVF RATE TO 500ML/HR.
--- NOTE | 2025-04-12 23:41 | NUR ---
PATIENT RESTING WITH EYES CLOSED, RESPRIATIONS EVEN AND UNLABORED, GUARDS X2 AT BEDSIDE, IV FLUID RATE INCREASED TO 500ML/HR PER MD ORDER. NO FURTHER NEEDS, CALL LIGHT IN REACH
[2025-04-13] VITALS (12 sets, daily range): BP systolic 120–141; BP diastolic 67–77
--- NOTE | 2025-04-13 00:36 | NUR ---
CALL LIGHT ANSWERED, PT BOOSTED IN BED, HE REPORTS 10/10 PAIN. PRN PAIN MEDICATION GIVEN TO PATIENT PER ORDER. MARTINEZ CATH EMPTIED, GUARDS X2 REMAIN AT BEDSIDE. RESPIRATIONS EVEN AND UNLABORED. NO FURTHER NEEDS, CALL LIGHT IN REACH
--- NOTE | 2025-04-13 01:12 | NUR ---
ROUNDED ON PATIENT, VS OBTAINED AND RECORDED. PRN TYLENOL GIVEN FOR ELEVATED TEMPERATURE. COLD RAG PLACED ON FOREHEAD. PATIENT DENIES CHILLS OR FEELING FEBRILE. IVF CONTINUING TO INFUSE PER ORDER. PATIENT DOING INCENTIVE SPIROMETER, PRACTICING DEEP BREATHING. PATIENT IN RESTRAINTS, GUARDS X2 AT BEDSIDE. NO FURTHER NEEDS, CALL LIGHT IN REACH
--- NOTE | 2025-04-13 02:09 | NUR ---
ROUNDED ON PATIENT, REASSESS TEMPERATURE, SEE VS DOCUMENTATION. PATIENT REPORTS 7/10 PAIN, PRN PAIN MEDICATION GIVEN PER ORDER. MARTINEZ CATH EMPTIED, GIVEN FRESH WATER. PATIENT DOING INCENTIVE SPIROMETER IN ROOM. GUARDS X2 IN ROOM. NO OTHER NEEDS, CALL LIGHT IN REACH
--- NOTE | 2025-04-13 03:00 | NUR ---
IV fluids out, new bag placed per order. Patient awake, no acute distress. Scd's placed per patient request. Two correctional officers at bedside. No further needs, call light within reach.
--- NOTE | 2025-04-13 03:40 | NUR ---
ROUNDED ON PATIENT, EMPTIED MARTINEZ CATHETER. PATIENT RESTING WITH EYES CLOSED, RESPIRATIONS EVEN AND UNLABORED. CPOX AT BEDSIDE, 1L NC. IVF CONTINUING TO INFUSE WITHOUT DIFFICULTY. GUARDS X2 AT BEDSIDE, NO NEEDS, CALL LIGHT IN REACH
--- NOTE | 2025-04-13 04:37 | NUR ---
ROUNDED ON PATIENT, RESTING WITH EYES CLOSED, RESPIRATIONS EVEN AND UNLABORED. GUARDS X2 AT BEDSIDE, IVF CONTINUING TO INFUSE WITHOUT DIFFICULTY, MARTINEZ CATH EMPTIED. NO NEEDS, CALL LIGHT IN REACH
--- NOTE | 2025-04-13 05:07 | NUR ---
CALL LIGHT ANSWERED, NEW IV BAG HUNG PER ORDER, INFUSING WITHOUT DIFFICULTY. PRN PAIN MEDICATION ADMINISTERED FOR 9/10 PAIN PER REQUEST. VS OBTAINED AND RECORDED, INTAKE AND OUTPUT DOCUMENTED. NO FURTHER NEEDS, CALL LIGHT IN REACH
[2025-04-13 05:30] LABS: BASOPHILS 0.4 % (0.2-1.2); EOSINOPHILS 0.9 % (0.8-7.0); LYMPHOCYTES 18.3 % (21.8-53.1); MCH 29.8 PG (25.7-32.2); MCHC 35.1 g/dL (32.3-36.5); MCV 84.8 fL (79.0-92.2); MONOCYTES 11.8 % (5.3-12.2); NEUTROPHILS 68.2 % (34.0-67.9); RBC 4.33 M/uL (4.63-6.08)
[2025-04-13 06:01] LABS: ALT (SGPT) 150.0 U/L (14-59); AST (SGOT) 533.0 U/L (15-37); GLOMERULAR FILTRATION RATE,EST 127.0 mL/min (>60); PHOSPHORUS, INORGANIC 4.5 mg/dL (2.5-4.9); PROTEIN, TOTAL 5.9 g/dL (6.4-8.2); UREA NITROGEN 4.0 mg/dL (7-18)
--- NOTE | 2025-04-13 06:46 | NUR ---
ROUNDED ON PATIENT, PATIENT RESTING WITH EYES CLOSED, GUARDS X2 IN ROOM. RESTRAINTS IN PLACE, CMS INTACT. IV MEDICATION STARTED PER ORDER, IVF CONTINUING TO INFUSE PER ORDER. LUNG SOUNDS CLEAR, 1L NC IN PLACE, CPOX AT BEDSIDE, MARTINEZ CATH EMPTIED. NO NEEDS, CALL LIGHT IN REACH
--- NOTE | 2025-04-13 07:20 | NUR ---
RECEIVED VERBAL REPORT FROM ALLAN MONTELONGO. PATINET RESTING IN BED WITH EYES CLOSED EASILY AROUSED TO RN VOICE. [facility] RESTRAINTS IN PLACE, CMS INTACT. GUARDS X2 AT BEDSIDE. 1 LNC ON CPOX AT BEDSIDE 99% O2 SAT. IVF INFUSING WITHOUT DIFFICULTY. PATIENT DENIES NEEDS AT THIS TIME. CALL LIGHT IN REACH.
[2025-04-13] MEDS ORDERED: MAGNESIUM CHLORIDE 64 MG TABCR PO ONE (08:00)
--- NOTE | 2025-04-13 08:36 | NUR ---
SCHEDULED MEDICATIONS GIVEN PER EMAR ORDER. PATIENT TRANSFERRED FROM BED TO CHAIR WITH 2RN'S. PATIENT WAS PAINFUL IN HIS BACK BUT WAS ABLE TO ASSIST WITH STANDING AND TRANSFER TO RECLINER. PATIENT WAS GIVEN PRN PAIN MEDICATION BEFORE TRANSFER FOR PAIN 01/14. FULL LINEN CHANGE PERFORMED. MARTINEZ EMPTIED AND DOCUMENTED. ASSESSMENT COMPLETED. PT/OT IN ROOM. [facility] RESTRAINTS IN PLACE CMS INTACT. GUARDS X2 AT BEDSIDE. CPOX ON AT 94% RA. NO OTHER NEEDS AT THIS TIME. CALL LIGHT IN REACH.
--- NOTE | 2025-04-13 09:13 | NUR ---
DC REVIEW: NO BARRIER TO DC NOTED DISCHARGE TO HOME WHEN CK STABLE ADD: 1-2 DAYS NO ACTIONS REQUIRED
--- NOTE | 2025-04-13 09:41 | NUR ---
PATIENT SITTING UP IN CHAIR AT THIS TIME. VITALS AND I&O'S DONE AND CHARTED. CALL LIGHT IN REACH. GUARDS IN ROOM. NO FURTHER NEEDS AT THIS TIME.
--- NOTE | 2025-04-13 10:37 | NUR ---
IN TO EMPTY MARTINEZ, 250 Ml. PATIENT SITTING IN CHAIR. 2 GUARDS IN ROOM. CALL LIGHT IN REACH. NO FURTHER NEEDS AT THIS TIME
--- NOTE | 2025-04-13 11:08 | NUR ---
PRN PAIN MEDICATION GIVEN PER EMAR ORDER. PATIENT TOLERATED WELL. PATIENT REQUEST TO BUSINESS UNIT DIRECTOR FRONT OF RECLINER, JULY IN PLACE. NEW LINENS AND NEW GOWN REPLACED. WARM WASHCLOTH GIVEN FOR FACE/HAIR/SKIN. PATIENT ABLE TO STAND WITHOUT ASSIST, CONTINUING TO PASS GAS. MARTINEZ EMPTYING BELOW WAIST. PATIENT STEADY ON FEET, STEADY GAIT. CPOX ON WITH 96% RA, HR TO 102 W/EXERTION. NO C/O DIZZINESS, [facility] RESTRAINTS IN PLACE, CMS INTACT, GUARDS X2 IN ROOM. IVF INFUSING WITHOUT DIFFICULTY. NO NEEDS IDENTENTIFIED AT THIS TIME. CALL LIGHT IN REACH.
--- NOTE | 2025-04-13 11:52 | NUR ---
NEW IVF BAG HANGING INFUSING WITHOUT DIFFICULTY. PATIENT SITTING UP IN RECLINER, LEGS ELEVATED. PATIENT STATES PAIN HAS DECREASED TO A 7/10 WITH PAIN MEDICATION. MARTINEZ EMPTIED AT 1130, CLEAR, YELLOW. PATINET DENIES NEEDS AT THIS TIME. GUARDS X2 IN ROOM, CALL LIGHT IN REACH.
--- NOTE | 2025-04-13 12:31 | NUR ---
PATIENT SITTING UP IN RECLINER, AWAKE AND ALERT FEET ELEVATED. MARTINEZ BAG EMPTIED AND DOCUMENTED. CLEAR, YELLOW URINE. PATIENT DENIES NEEDS AT THIS TIME. [facility] RESTRAINTS IN PLACE, CMS INTACT. GUARDS X2 IN ROOM. CALL LIGHT IN REACH.
--- NOTE | 2025-04-13 13:30 | NUR ---
EMPTIED PATIENTS MARTINEZ, URINE IS CLEAR, YELLOW. PATIENT REQUESTED TO AMBULATE TO THE BATHROOM. PATIENT WAS ABLE TO STAND FROM CHAIR ON HIS OWN WITH STEADY GAIT. PATIENT ABLE TO AMBULATE WITH STBY FOR LINES AND DRAINS. MARTINEZ CARE WAS PERFORMED INDEPENDENTLY AFTER GIVEN CATH WIPES. PATIENT THEN AMBULATED BACK TO CHAIR WITHOUT DIFFICULTY. [facility] RESTRAINTS IN PLACE, CMS INTACT. GUARDS X2 IN ROOM. CPOX ON 97% RA. MARTINEZ DRAINING BELOW WAIST. PATIENT DENIES NEEDS AT THIS TIME. CALL LIGHT IN REACH.
--- NOTE | 2025-04-13 13:45 | NUR ---
FOCUSED ASSESSMENT COMPLETED AND DOCUMENTED. PATIENT DENIES NEEDS AT THIS TIME. CALL LIGHT IN REACH.
--- NOTE | 2025-04-13 16:10 | NUR ---
VERBAL REPORT PROVIDED TO ALLAN GOMEZ.
--- NOTE | 2025-04-13 16:47 | NUR ---
HOURLY ROUNDING EMPTIOED PATIENT URINAL, DOC 300 ML. NURSE NOTIFIED, NO REQUEST FROM PATIENT AT THIS TIME
--- NOTE | 2025-04-13 17:18 | NUR ---
NOTIFIED DR. SILVESTRE OF PT OUTPUT AND IV FLUID RATE. NEW ORDERS RECEIVED.
--- NOTE | 2025-04-13 19:35 | NUR ---
RECEIVED REPORT FROM ALLAN ARROYO. PT LAYING IN BED [employer] TV. REPORTS WANTING TYLENOL AND CRANDBERRY JUICE WITH HIS ORDERED MEDS. NO OTHER NEEDS AT THIS TIME, CALL LIGHT WITHIN REACH. GUARDS AT BEDSIDE, WHITEBOARD UPDATED.
--- NOTE | 2025-04-13 20:00 | NUR ---
THIS RN TO RESUME CARE. REPORT RECEIVED FROM BRADFORD LEMUS.
--- NOTE | 2025-04-13 20:25 | NUR ---
ASSESSMENT COMPLETE. PATIENT COMPLAINS OF 8/10 BACK PAIN AND 9/10 BACK PAIN WHEN AMBULATING TO BATHROOM, PRN PAIN MEDICATION ADMINISTERED (SEE EMAR). PATIENT AMBULATED TO BATHROOM VIA SBA FWW, PATIENT COMPLAINS OF PAIN WITH MOVEMENT. PATIENT REPOSITONED IN BED FOR COMFORT. PATIENT DENIES ANY FURTHER NEEDS AT THIS TIME. PATIENT IN 4 POINT RESTRAINTS AND X2 [facility] OFFICERS AT BEDSIDE PER [facility] PROTOCOLS. CALL LIGHT WITHIN REACH.
--- NOTE | 2025-04-13 21:13 | NUR ---
PT REPORTS BACK PAIN 10/10 AFTER AMB TO BR. PRN FOR PAIN ADMIN PER EMAR. NO FURTHER NEEDS.
--- NOTE | 2025-04-13 23:19 | NUR ---
PATIENT RESTING IN BED EYES CLOSED. ANTIBIOTIC HUNG AND INFUSING AT THIS TIME. [facility] GUARDS AT BEDSIDE, X4 POINT RESTRAINTS IN PLACE PER [facility] PROTCOLS. NO NEEDS AT THIS TIME. CALL LIGHT WITHIN REACH.
[2025-04-14] VITALS (9 sets, daily range): BP systolic 122–143; BP diastolic 64–89
--- NOTE | 2025-04-14 00:53 | NUR ---
PATIENT RESTING IN BED EYES CLOSED, RESPIRATIONS EVEN AND UNLABORED. [facility] OFFICERS AT BEDSIDE, X4 POINT RESTRAINTS PER [facility] PROTCOL. CPOX AT BEDSIDE. ANTIBIOTICS INFUSING AT THIS TIME. CALL LIGHT WITHIN REACH.
--- NOTE | 2025-04-14 01:20 | NUR ---
PATIENT COMPLAINS OF 9/10 BACK PAIN, PRN PAIN MEDICATION GIVEN (SEE EMAR). 2100ML OF YELLOW URINE COLLECTED FROM MARTINEZ BAG. FRESH ICE WATER PROVIDED. [facility] OFFICERS X2 AT BEDSIDE, PATIENT HAS X4 POINT RESTRAINTS PER [facility] PROTOCOL. NO FURTHER NEEDS AT THIS TIME. CALL LIGHT WITHIN REACH.
--- NOTE | 2025-04-14 01:47 | NUR ---
PATIENT PROVIDED SNACK PER REQUEST. PATIENT SITTING UP EATING IN BED AT THIS TIME, WATCHING TV. CPOX AT BEDSIDE. CALL LIGHT WITHIN REACH.
--- NOTE | 2025-04-14 04:15 | NUR ---
PATIENT RESTING IN BED EYES CLOSED. MARTINEZ EMPTIED, 800ML OF CLEAR YELLOW URINE. PATIENT DENIES ANY NEEDS AT THIS TIME. X4 POINT RESTRAINTS AND X2 [facility] GUARDS AT BEDSIDE PER [facility] PROTOCLS. CALL LIGHT WITHIN REACH.
--- NOTE | 2025-04-14 05:42 | NUR ---
PATIENT COMPLAINS OF 9/10 BACK PAIN, PRN PAIN MEDICATION ADMINISTERED (SEE EMAR). PATIENT REPOSITIONED FOR COMFORT. X2 [facility] OFFICERS AT BEDSIDE, X4 POINT RESTRAINTS PER [facility] PROTOCOL. PATIENT DENIES FURTHER NEEDS AT THIS TIME. CALL LIGHT WITHIN REACH.
--- NOTE | 2025-04-14 07:37 | NUR ---
MORNING REPORT RECIEVED FROM ALLAN LOPEZ. PT IS LAYING IN BED WITH EYES CLOSED CHEST RISE EQUAL BILAT WITH TWO [facility] GUARDS PRESENT IN ROOM AND PT IN FOUR POINT RESTRAINTS AT THIS TIME. PT AND GUARDS DENIY ANY CURRENT NEEDS AT THIS TIME.
--- NOTE | 2025-04-14 08:40 | NUR ---
Received a verbal order from Dr. Turcios to D/C this pt's blackburn catheter. Updated Primary RN and entered order.
--- NOTE | 2025-04-14 09:02 | NUR ---
AMBULATING IN [facility] WITH NURSING STAFF THIS AM. WILL RETURN TO [facility] WHEN MEDICALLY READY. CONTINUES ON IV FLUIDS AND NEED TO TREND LABS.
--- NOTE | 2025-04-14 09:25 | NUR ---
Patient ambulated in hallway x1 lap around the nurses station. Patient tolerated well using FWW.
[2025-04-14] MEDS ORDERED: OXYCODONE HCL 5 MG TAB PO PRN (10:00)
--- NOTE | 2025-04-14 10:51 | NUR ---
DC REVIEW: NO BARRIERS TO [facility] ADD: 1-2 DAYS NO ACTIONS REQUIRED
[2025-04-14] MEDS ORDERED: TRAZODONE HCL 100 MG TAB PO PRN (12:00)
--- NOTE | 2025-04-14 13:26 | NUR ---
PT SITTING UP IN CHAIR RESTING COMFORTABLY WITH EYES CLOSED CHEST RISE EQUIAL BILAT, PT HAS [address] AND TWO [facility] GUARDS IN ROOM, CALL LIGHT IN REACH.
--- NOTE | 2025-04-14 13:49 | NUR ---
PT MARTINEZ CATH REMOVED, PT TOLERATED WELL AND GIVEN URNAL TO VOID IN WHEN PT FEELS THE URGE TO VOID, PT HAS NO CURRENT CONCERNS AND CALL LIGHT IN REACH.
--- NOTE | 2025-04-14 15:00 | NUR ---
PT SITTING UP IN CHAIR AFTER TAKING A SHOWER, PT FLUIDS RESTARTED AND PT DENIES ANY CURRENT NEEDS AT THIS TIME.
--- NOTE | 2025-04-14 17:48 | NUR ---
PT SITTING UP IN CHAIR AT THIS TIME AND HAS CALL LIGHT IN REACH. PT ASKED PHOTOGRAPHER'S ASSISTANT TO TELL THIS RN THEY WERE REQUESTING PAIN MEDS. THIS RN WILL ADMIN PRN PAIN MEDS SOON.
--- NOTE | 2025-04-14 18:34 | NUR ---
PT SITTING UP IN CHAIR AT THIS TIME, PT STATES AIN HAS DECREASED AFTER PRN OXY WAS GIVEN (SEE EMAR). PT HAS NO OTHER CONCERNS AND HAS CALL LIGHT IN REACH.
--- NOTE | 2025-04-14 19:15 | NUR ---
VERBAL REPORT RECEIVED FROM LUKAS LEMUS. PATIENT SITTING UP IN RECLINER, COMPLAINS OF NO PAIN AT THIS TIME AND STATES TO BE COMFORTABLE. X2 [facility] OFFICERS AT BEDSIDE, X4 POINT RESTRAINTS PER [facility] PROTOCOLS. ICE WATER PROVIDED PER PATIENT REQUEST. CALL LIGHT WITHIN REACH.
--- NOTE | 2025-04-14 21:34 | NUR ---
PATIENT SITTING UP IN RECLINER AT THIS TIME. PATIENT COMPLAINS OF 8/10 BACK PAIN WITH MOVEMENT BUT MENTIONS WILL TOLERATE UNTIL NEXT PRN MEDICATION IS AVAILABLE. REPOSIONING FOR PATIENT COMFORT. X2 [facility] OFFICERS AT BEDSIDE, X4 POINT RESTRAINTS PER [facility] PROTCOLS. PATIENT DENIES NEEDS AT THIS TIME. CALL LIGHT WITHIN REACH.
--- NOTE | 2025-04-14 22:43 | NUR ---
CALL LIGHT ANSWERED. PT REPORTS 9/10 BACK PAIN. PRN FOR PAIN ADMIN PER EMAR. URINAL EMPTIED OF 650 ML CLEAR YELLOW URINE. NO FURTHER NEEDS.
--- NOTE | 2025-04-14 23:44 | NUR ---
PATIENT CALLED WITH CALL LIGHT TO ADVISE OF IV PUMPING GOING ON. THIS NURSE INTO ROOM. FLUIDS WERE DONE, NEW BAG STARTED. PATIENT REQUESTING FLEXRIL MEDICATION. PT GIVEN. WATER AT BEDSIDE. LIGHTS TURNED OFF.
[2025-04-15] VITALS (9 sets, daily range): BP systolic 116–134; BP diastolic 67–78
--- NOTE | 2025-04-15 01:00 | NUR ---
PATIENT RESTING IN BED EYES CLOSED RESPIRATIONS EVEN AND UNLABORED. X2 [facility] OFFICERS AT BEDSIDE, X4 POINT RESTRAINTS PER [facility] PROTCOLS. CALL LIGHT WITHIN REACH.
--- NOTE | 2025-04-15 02:16 | NUR ---
PATIENT RESTING IN BED EYES CLOSED. PATIENT DENIES ANY NEEDS AT THIS TIME. X2 [facility] OFFICERS, X4 POINT RESTRAINTS PER [facility] PROTOCOLS. CALL LIGHT WITHIN REACH.
--- NOTE | 2025-04-15 03:58 | NUR ---
PATIENT USES CALL LIGHT, COMPLAINS OF 9/10 BACK PAIN, PRN PAIN MEDICATION GIVEN. 700ML OF CLEAR YELLOW URINE EMPTIED OUT OF URINAL. FRESH ICE WATER PROVIDED. ENCOURAGED ACAPELLA USE WHEN MORE AWAKE. PATIENT DENIES ANY FURTHER NEEDS AT THIS TIME. X2 [facility] OFFICERS AT BEDSIDE, X4 POINT RESTRAINTS PER [facility] PROTCOLS. CALL LIGHT IN REACH.
[2025-04-15 05:51] LABS: ALT (SGPT) 149.0 U/L (14-59); AST (SGOT) 279.0 U/L (15-37); GLOMERULAR FILTRATION RATE,EST 121.0 mL/min (>60); PROTEIN, TOTAL 6.4 g/dL (6.4-8.2); UREA NITROGEN 7.0 mg/dL (7-18)
--- NOTE | 2025-04-15 06:07 | NUR ---
PATIENT RESTING IN BED AWAKE AT THIS TIME. PATIENT RATES PAIN 5/10 IN THE BACK, STATES THIS IS TOLERABLE. 750ML OF CLEAR YELLOW URINE EMPTIED OUT OF URINAL. X2 [facility] OFFICERS AT BEDSIDE, X4 POINT RESTRAINTS PER [facility] PROTCOLS. PATIENT DENIES FURTHER NEEDS AT THIS TIME. CALL LIGHT WITHIN REACH.
--- NOTE | 2025-04-15 07:30 | NUR ---
MORNING REPORT RECIEVED FROM ALLAN HAMMOND. PT HAD NO ACUTE EVENTS IN THE NIGHT AND HAS NO CURRENT CONCERNS AT THIS TIME. PT IMFORMED THAT THEY NEED TO AMBULATE MUCH TOLERATED TODAY, PT AGREEABLE. CALL LIGHT IN REACH.
--- NOTE | 2025-04-15 09:00 | NUR ---
PT IS CURRENTLY AMBULATING IN THE HALLS AT THIS TIME WITH [facility] GUARDS AND [address] PT DENIES NEEDS AND IS TOLERATING WELL AT THIS TIME.
--- NOTE | 2025-04-15 09:34 | NUR ---
CLINICALS FAXED TO [facility].
--- NOTE | 2025-04-15 11:00 | NUR ---
PT IS CURRENTLY AMBULATING THE HALLS WITH TWO [facility] GUARDS AND FOUR POINT RESTRAINTS, PT IS TOLERATING WELL THIS TIME AND DENIES ANY CURRENT NEEDS.
--- NOTE | 2025-04-15 12:14 | NUR ---
PT SITTING UP IN CHAIR EATING LUNCH, PT DENIES ANY CURRENT NEEDS AND HAS FOUR POINT RESTRAINTS IN PLACE AND 2 [facility] GUARDS IN ROOM. WHILE SPEAKING WITH PATIENT THE PATIENT ASKED "HOW MUCH LONGER WILL I BE HERE" THIS RN TOLD THE PATIENT THAT "I CANT GIVE A DIFINITIVE ANSWER TO HOW LONG THEY WILL BE ADMITTED AND SAID IT COULD BE A FEW DAYS OR LONGER, IT IS UP TO THE DOCTOR". THE [facility] GUARD ASKED TO SPEAK IN HALLWAY AND ASKED THAT I DO NOT TELL THE PATIENT WHEN THEY ARE LEAVING. THIS RN TOLD THE [facility] GUARD THAT I DID NOT GIVE THE PATIENT A DEFINITIVE ANSWER AND WILL CONTINUE TO BE [place]AGUE WHEN ANSWERING DC TIMELINE" [facility] GUARD AGREEABLE. PT HAS CALL LIGHT IN REACH IF NEEDED.
--- NOTE | 2025-04-15 13:30 | NUR ---
SITTING UP IN CHAIR, EATING, C/O BACK PAIN, 01/14 MEDICATED WITH 10MG OXYCODONE. URINAL EMPTIED, VOIDING LARGE AMOUNT CLEAR URINE
--- NOTE | 2025-04-15 14:19 | NUR ---
PATIENT SET UP AND IN THE SHOWER. GUARDS NEXT TO HIM. PATIENT GIVEN SOAP AND LOTION, NEW SOCKS, NEW GOWN. BED CLEANED UP. ROOM CLEANED UP.
--- NOTE | 2025-04-15 15:29 | NUR ---
PT IN CHAIR, LEGS ELEVATED, AWARE OF INCREASED AMBULATION 4X/DAY, STAED UNDERSTANDING, WEARING [address] [facility] [address]
--- NOTE | 2025-04-15 16:20 | NUR ---
in chair, legs elevated. on room air. IVf infusing w/o problems, encouraged to go for a walk, "later" staed, Pt wearing 4 point restraints as per [facility] policy, 2 officers in room
--- NOTE | 2025-04-15 16:41 | NUR ---
PATIENT UP AND WALKED TWO LAPS.
--- NOTE | 2025-04-15 17:25 | NUR ---
PT SHOWERED. TOLERATED WELL C/O R BACK PAIN, MEDICATED WITH OXYCODONE 10MG PO. IN CHAIR, EATING.
--- NOTE | 2025-04-15 18:31 | NUR ---
In chair, legs elevated, Denies c/o pain. IVF infusing w/o problems, voiding QS, uses urinal. Pt showered, has been released from PT and has walked up and down hallways three times, has tolerated well. Pt wearing 4 point restrainsts and there are 2 officers in room as per [facility] protocol.
--- NOTE | 2025-04-15 19:38 | NUR ---
RECEIVED REPORT FROM ALLAN APARICIO. PT UP IN RECLINER. GUARDS AT BEDSIDE. PT DENIES NEEDS OR CONCERNS AT THIS TIME. CALL LIGHT WITHIN REACH.
--- NOTE | 2025-04-15 21:20 | NUR ---
PT UP IN RECLINER. VSS. REPORTS 8/10 BACK PAIN, MEDICATED W/ PRN OXYCODONE 10MG. LSC. HRR. BTA. REPORTS LBM YESTERDAY. VOIDS WNL. RFA IV INFUSING LR @ 125MLS/HR, IV SITE WNL. PT REPORTS NUMBNESS TO RIGHT BACK UNCHANGED. PT IS IND W/ AMB AND LTM W/ GUARDS IN ROOM. CALL LIGHT WITHIN REACH.
--- NOTE | 2025-04-15 22:30 | NUR ---
PT UP TO BR IND TO VOID. PT PERFORMED OWN ORAL CARE. PT NOW IN BED. ADMINISTERED PRN FLEXERIL PER REQUEST.
--- NOTE | 2025-04-16 00:50 | NUR ---
PT ASLEEP, APPEARS COMFORTABLE. GUARDS AT BEDSIDE.
--- NOTE | 2025-04-16 02:34 | NUR ---
PT MEDICATED W/ PRN OXYCODONE FOR C/O 12/14 BACK PAIN. URINAL EMPTIED. NO OTHER NEEDS AT THIS TIME.
[2025-04-16 06:07] LABS: ALT (SGPT) 154.0 U/L (14-59); AST (SGOT) 205.0 U/L (15-37); GLOMERULAR FILTRATION RATE,EST 121.0 mL/min (>60); PROTEIN, TOTAL 7.5 g/dL (6.4-8.2); UREA NITROGEN 9.0 mg/dL (7-18)
[2025-04-16 06:16] VITALS: BP 121/71
--- NOTE | 2025-04-16 06:17 | NUR ---
CIRCUIT DESIGN ENGINEER OBTAINED VITALS AND I&O. PT STATES NO NEEDS AT THIS TIME. CALL LIGHT WITHIN REACH AND GUARDS IN ROOM.
[2025-04-16 06:25] VITALS: BP 121/71
--- NOTE | 2025-04-16 06:34 | NUR ---
PT UP TO BR IND W/ GUARDS IN ROOM. VOIDS WNL. REPORTS ONGOING BACK PAIN 12/14. MEDICATED W/ PRN OXYCODONE PER REQUEST.
--- NOTE | 2025-04-16 07:29 | NUR ---
Pt awake, on room air, lung with faint crackles at bases, cleared with cough. abd soft, ERICK, continues to c/o R low back numbness and pain. no edema. IVF infusing w/o problems RFA. wearing 4 point restraints and 2 [facility] officers in room as per [facility] policy. No c/o pain at thist troy
[2025-04-16] MEDS ORDERED: HYDROCODONE/ACETA 5/325 TAB PO PRN (08:00)
--- NOTE | 2025-04-16 08:09 | NUR ---
YARON AT [facility]IST [facility]
--- NOTE | 2025-04-16 08:29 | NUR ---
PT UP IN CHAIR, EATING, INDEPENDENT TO BR, VOIDED,
--- NOTE | 2025-04-16 08:30 | NUR ---
Notified by Dr. Turcios. Pt will dc today. Notified cds sales advisor I will need the orders and paperwork to fax to the [facility] prior to dc.
[2025-04-16] MEDS ORDERED: GABAPENTIN 300 MG CAP PO SCH (09:00)
[2025-04-16 09:05] VITALS: BP 128/69
[2025-04-16 09:41] VITALS: BP 128/69
--- NOTE | 2025-04-16 09:42 | NUR ---
ambulating in room, on roomn air, no c/o at this time
--- NOTE | 2025-04-16 10:16 | NUR ---
C/O 12/14 R BACK PAIN. MEDICATED WITH 2 NORCO
[2025-04-16] MEDS ORDERED: HYDROCODON-ACE1 EA10 PO (11:22)
[2025-04-16] MEDS ORDERED: GABAPENTIN300 MG PO (11:23)
[2025-04-16] MEDS ORDERED: LIDOCAINE1 EACH TD (11:23)
--- NOTE | 2025-04-16 11:41 | NUR ---
Received orders and faxed Orders, RX, [place] sheet, and dc summary to [facility].
--- NOTE | 2025-04-16 12:02 | NUR ---
Called and spoke with Jeremias Garcia. She spoke with a Carton Forming Machine Helper and [facility]. Read the orders to the RN.She requests an report RN to RN. I will let our staff know.
[2025-04-16 12:29] VITALS: BP 119/70
--- NOTE | 2025-04-16 12:29 | NUR ---
Pt IV av site dc'd tip intact. DC instructions and RX given to guards. [facility] Pt being dc at this time via w/c with 2 guards
--- NOTE | 2025-04-16 12:54 | NUR ---
Telephone report given to Nurse Lito Paulino at the [facility]. Report given and aware of new Rx for Lidocaine patch, [place] and Gabapentin.
== END 2025-04-16 12:30 | disposition home or self-care (01) | DRG 564 ==
LOC: ED 00:14 → MS 00:16
PROVIDERS: Internal Medicine; Student in an Organized Health Care Education/Training Program; ADMIT Family Medicine; ATTEND Family Medicine
PROC: 0T9B70Z Drainage of Bladder with Drainage Device, Via Natural or Artificial Opening (ICD-10-PCS; principal; 2025-04-09)
PROC: 3E03329 Introduction of Other Anti-infective into Peripheral Vein, Percutaneous Approach (ICD-10-PCS; 2025-04-11)
DX: T79.6XXA Traumatic ischemia of muscle, initial encounter (principal); J69.0 Pneumonitis due to inhalation of food and vomit; M48.07 Spinal stenosis, lumbosacral region; M54.50 Low back pain, unspecified; F41.9 Anxiety disorder, unspecified; Z88.0 Allergy status to penicillin; Z86.19 Personal history of other infectious and parasitic diseases; Z79.899 Other long term (current) drug therapy; X50.0XXA Overexertion from strenuous movement or load, initial encounter; Y92.89 Other specified places as the place of occurrence of the external cause; Y93.B9 Activity, other involving muscle strengthening exercises
CPT/HCPCS: 36415; 51702; 71045; 72131; 72158; 74176; 80048; 80053; 80307; 81001; 82550; 83605; 83735; 84100; 84443; 85025; 87040; 94667; 94668; 94762; 94799; 96361; 96374; 96376; 97116; 97161; 97166; 97530; 97535; 99285-25; A9270; A9573; G0378; J0696; J1171; J1885; J3475; J7030; J7121